=== PATIENT | male | born 1955 | race African-American/Black ===

== ENCOUNTER 2022-08-06 14:16 | Emergency (ER) | payer OTHER ==
[~2022-08-06] VITALS: Ht 185.4 cm; Wt 73.0 kg
[2022-08-06 15:08] VITALS: BP 206/113
[2022-08-06] MEDS ORDERED: AMLODIPINE 5MG TABLET PO ONE (15:30)
[2022-08-06] MEDS ORDERED: AMLO5TAB88 MT (15:40)
== END 2022-08-06 16:30 | disposition home or self-care (01) ==
LOC: ER 14:16
DX: I16.0 Hypertensive urgency (principal)
CPT/HCPCS: 93005; 99283

== ENCOUNTER 2025-07-04 12:22 | Emergency (ER) | payer OTHER ==
[~2025-07-04] VITALS: Ht 182.9 cm; Wt 81.0 kg
[~2025-07-04 12:22] MED LIST: AMLO5TAB88 MT
[2025-07-04 12:25] VITALS: O2SAT 100
[2025-07-04 12:54] LABS: BASOPHILS % 0.8 % (0.0-2.0); EOSINOPHILS % 8.8 % (0.0-5.0); HEMATOCRIT. 41.6 % (42.0-52.0); HEMOGLOBIN. 13.9 g/dL (14.0-18.0); LYMPHOCYTES % 31.3 % (20.0-50.0); MEAN PLATELET VOLUME 8.2 fl (7.4-10.4); MONOCYTES % 8.0 % (2.0-8.0); NEUTROPHILS % 51.1 % (40.0-76.0); PLATELET 277 x1000/uL (130-400); RED BLOOD CELL COUNT 4.69 mill/uL (4.7-6.1); RED CELL DISTRIBUTION WIDTH 13.7 % (11.6-14.6)
[2025-07-04 13:16] LABS: CREATININE 1.0 mg/dL (0.6-1.3); TROPONIN I HIGH SENSITIVITY 7 ng/L (3.0-53); UREA NITROGEN BLOOD 11 mg/dL (9-23)
[2025-07-04 13:18] LABS: ASPARTATE AMINOTRANSFERASE 16 IU/L (<34); BILIRUBIN DIRECT 0.1 mg/dL (<=3.0); BILIRUBIN TOTAL 0.6 mg/dL (0.1-1.0); PROTEIN TOTAL 7.0 g/dL (6.0-8.3)
[2025-07-04 13:23] LABS: INR 0.9
[2025-07-04 14:17] VITALS: BP 172/90; PULSE 52; RESP 19; TEMP 36.7; O2SAT 97
== END 2025-07-04 14:20 | disposition home or self-care (01) ==
LOC: ER 12:22
DX: I10 Essential (primary) hypertension (principal); I51.7 Cardiomegaly; I49.9 Cardiac arrhythmia, unspecified
CPT/HCPCS: 80076; 80048; 83880; 85025; 85610; 85730; 84484; 36415; 71045; 93005; 99285; Z7610